=== PATIENT | female | born 1980 | race African-American/Black ===

== ENCOUNTER 2023-11-04 14:22 | Emergency (ER) | payer MEDICAID ==
[~2023-11-04] VITALS: Ht 162.6 cm; Wt 90.7 kg
[2023-11-04 14:38] VITALS: BP_SYST 133; PULSE 87; RESP 18; TEMP 98.5; O2SAT 98
[2023-11-04] MEDS: KETOROLAC TROMETHAMINE 60 MG/2 ML VIAL IM ONE (15:16)
[2023-11-04 15:29] LABS: BILIRUBIN,URINE NEGATIVE (NEGATIVE); BLOOD, URINE NEGATIVE (NEGATIVE); CLARITY/URINE CLEAR (CLEAR); COLOR,URINE YELLOW (YELLOW); GLUCOSE,URINE NEGATIVE (NEGATIVE); KETONES,URINE NEGATIVE (NEGATIVE); NITRITE, URINE NEGATIVE (NEGATIVE); PROTEIN URINE NEGATIVE (NEGATIVE); UROBILINOGEN,URINE 0.2 (0.2-1.0)
[2023-11-04 15:36] LABS: LEUKOCYTE ESTERASE ,URINE TRACE (NEGATIVE)
[2023-11-04 15:37] LABS: BACTERIA,URINE RARE /HPF (None Seen); CALCIUM OXALATE CRYSTALS,UR 0-10 /HPF (None Seen); MUCUS,URINE 1+ /LPF (None Seen); RBC,URINE NONE SEEN /HPF (0-3); WBC,URINE 0-3 /HPF (0-3); YEAST,URINE Few /HPF (None Seen)
[2023-11-04 16:08] LABS: BASOPHILS % (AUTO) 0.6 % (0.0-2.0); EOSINOPHILS # (AUTO) 0.1 K/uL (0.0-0.4); EOSINOPHILS % (AUTO) 1.7 % (0.0-4.0); HEMATOCRIT 38.4 % (36-48); HEMOGLOBIN 13.3 g/dL (12.0-16.0); LYMPHOCYTES # (AUTO) 2.6 K/uL (1.0-5.5); LYMPHOCYTES % (AUTO) 31.5 % (20.5-51.5); MEAN CORPUSCULAR HEMOGLOBIN 30 pg (27-31); MEAN CORPUSCULAR HGB CONC 35 % (32-36); MEAN CORPUSCULAR VOLUME 87 fL (79.0-98.0); MONOCYTES # (AUTO) 0.5 K/uL (0.0-1.0); NEUTROPHILS % (AUTO) 60.2 % (40.0-70.0); PLATELET COUNT (AUTO) 335 K/uL (130-430); RED BLOOD CELL COUNT(AUTO) 4.43 MIL/uL (4.2-6.2); RED CELL DISTRIBUTION WIDTH 14.3 % (9.0-15.0); WHITE BLOOD COUNT (AUTO) 8.3 K/uL (4.8-10.8)
[2023-11-04 16:17] LABS: CALCIUM 8.6 mg/dL (8.4-11.0); CREATININE 0.89 mg/dL (0.55-1.30); POTASSIUM 3.7 mmol/L (3.5-5.1); SERUM HCG (QUALITATIVE) NEGATIVE (NEGATIVE)
[2023-11-04 16:21] LABS: ALBUMIN 3.3 g/dL (3.4-4.8); BILIRUBIN,DIRECT 0.1 mg/dL (0.0-0.3); TOTAL BILIRUBIN 0.4 mg/dL (0.0-1.0); TOTAL PROTEIN, SERUM 7.1 g/dL (6.4-8.3)
[2023-11-04 17:26] VITALS: BP_SYST 133; PULSE 87; RESP 18; TEMP 98.5; O2SAT 98
[2023-11-04] MEDS ORDERED: IBUP-1971 PO (17:29)
== END 2023-11-04 17:26 | disposition home or self-care (01) ==
LOC: SED 14:22
DX: K42.9 Umbilical hernia without obstruction or gangrene (principal)
CPT/HCPCS: 99285; 74176; 80076; 80048; 81001; 84703; 85025; 36415; 96372; J1885; 81000; 81015

== ENCOUNTER 2024-01-19 15:20 | Emergency (ER) | payer MEDICAID ==
[~2024-01-19] VITALS: Ht 160 cm; Wt 88.5 kg
[~2024-01-19 15:20] MED LIST: IBUP-1971 PO
[2024-01-19 15:28] VITALS: BP_SYST 158; PULSE 120; RESP 18; TEMP 98.3
[2024-01-19 16:05] VITALS: BP_SYST 158; PULSE 120; RESP 18; TEMP 98.3
== END 2024-01-19 16:05 | disposition left against medical advice (07) ==
LOC: SED 15:20
DX: M79.622 Pain in left upper arm (principal); M79.621 Pain in right upper arm
CPT/HCPCS: 99281